=== PATIENT | female | born 1985 | race Hispanic/Latino ===

== ENCOUNTER 2023-08-10 09:19 | Emergency (ER) | payer SELFPAY ==
[~2023-08-10] VITALS: Ht 162.6 cm; Wt 93.0 kg
[~2023-08-10 09:19] MED LIST: NO MEDS
[2023-08-10 10:04] VITALS: BP 140/70
[2023-08-10 10:30] VITALS: BP 127/67
[2023-08-10 11:01] VITALS: BP 106/89
[2023-08-10 13:14] VITALS: BP 117/56
[2023-08-10] MEDS ORDERED: MECLIZINE 2525 MG PO (14:12)
[2023-08-10] MEDS ORDERED: NAPROXEN500 MG PO (14:12)
[2023-08-10 14:36] VITALS: BP 117/56
== END 2023-08-10 14:53 | disposition home or self-care (01) | DRG 90 ==
LOC: ED 09:19
DX: S06.0X0A Concussion without loss of consciousness, initial encounter (principal); E11.9 Type 2 diabetes mellitus without complications; W20.8XXA Other cause of strike by thrown, projected or falling object, initial encounter; Y99.0 Civilian activity done for income or pay